=== PATIENT | female | born 1965 | race Caucasian/White ===

== ENCOUNTER 2017-09-18 11:33 | Emergency (ER) | payer SELFPAY ==
[~2017-09-18] VITALS: Ht 165.1 cm; Wt 80.0 kg
[~2017-09-18 11:33] MED LIST: LEVA750T PO; METR-1 PO; OXYC1SOL5 PO; RANI150 PO
[2017-09-18 11:35] VITALS: BP 168/95; PULSE 80; RESP 18; TEMP 97.9; O2SAT 97
[2017-09-18] MEDS ORDERED: PANTOPRAZOLE SODIUM 40 MG VIAL IV PUSH ONE (12:00)
[2017-09-18] MEDS ORDERED: SODIUM CHLORIDE 0.9% FLUSH 10 ML FLUSH IVF PRN (12:00)
[2017-09-18 12:04] VITALS: RESP 18; O2SAT 98
--- NOTE | 2017-09-18 12:04 | PD ---
HPI Chief Complaint: GI Complaint Time Seen by Provider: 11:45 Travel History International Travel<30 days: No Contact w/Intl Traveler<30days: No Traveled to known affect area: No History of Present Illness HPI 51 y/o female presents with rectal bleeding for the past 4 days. She notes she is also having left lower quadrant abdominal pain. She states she has history of diverticular disease and has had to have surgery for this before. She states she had been doing good until the past 4 days. She denies any vomiting or other concurrent complaints. Quality is bright red. Severity is every time she goes to the bathroom. She states she wants an antibiotic and to go home with possible because she has to work at 4 PM. She denies specific modifying factors. 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") Tubal Ligation: Yes Past Surgical History Abdominal Surgery: Yes (LEFT OVARY REMOVED) Appendectomy: No Cardiac Surgery: No Cholecystectomy: No Coronary Artery Bypass Graft: No Ear Surgery: No Endocrine Surgery: No Eye Surgery: No Genitourinary Surgery: No Gynecologic Surgery: Yes (TUBAL LIGATION AND OOPHORECTOMY) Hysterectomy: Yes Joint Replacement: No Neurologic Surgery: No Oral Surgery: No Thoracic Surgery: No Tonsillectomy: Yes Other Surgery: Yes Social History Alcohol Use: No Tobacco Use: Yes (1 PACK PER DAY) Substance Use: No Allergies-Medications (Allergen,Severity, Reaction): Coded Allergies: acetaminophen (Unverified Allergy, Intermediate, HIVES, 06/10/17) hydrocodone (Unverified Allergy, Intermediate, HIVES, 06/10/17) Reported Meds & Prescriptions Reported Meds & Active Scripts Active Review of Systems Except as stated in HPI: all other systems reviewed are Neg Physical Exam Narrative GENERAL: Well-nourished, well-developed patient. SKIN: Warm and dry. HEAD: Normocephalic and atraumatic. EYES: No injection or drainage. ENT: No nasal drainage noted. NECK: Supple, trachea midline. CARDIOVASCULAR: Regular rate and rhythm RESPIRATORY: Breath sounds equal bilaterally. No accessory muscle use. GASTROINTESTINAL: Abdomen soft, ttp in llq, nondistended. RECTAL EXAM: Performed with de alcoholizer and after permission. Stool is brown with bright red blood NEUROLOGICAL: Awake and alert. Moves all extremities and sensory grossly within normal limits. Normal speech. Data Data Last Documented VS Vital Signs Date Time Temp Pulse Resp B/P (MAP) Pulse Ox O2 Delivery O2 Flow Rate FiO2 09/18/17 12:15 97.7 79 18 145/97 (113) 97 Room Air Orders Orders Basic Metabolic Panel (Bmp) (09/18/17 11:46) Complete Blood Count With Diff (09/18/17 11:46) Prothrombin Time / Inr (Pt) (09/18/17 11:46) Act Partial Throm Time (Ptt) (09/18/17 11:46) Type And Screen (09/18/17 11:46) Ecg Monitoring (09/18/17 11:46) Iv Access Insert/Monitor (09/18/17 11:46) Oximetry (09/18/17 11:46) Sodium Chloride 0.9% Flush (Ns Flush) (09/18/17 12:00) Ct Abd/Pel W Iv Contrast(Rout) (09/18/17 ) Pantoprazole Inj (Protonix Inj) (09/18/17 12:00) Iohexol 350 Inj (Omnipaque 350 Inj) (09/18/17 13:02) Ed Discharge Order (09/18/17 14:10) Labs Laboratory Tests Test 09/18/17 11:54 White Blood Count 9.9 TH/MM3 Red Blood Count 5.27 MIL/MM3 Hemoglobin 15.5 GM/DL Hematocrit 46.4 % Mean Corpuscular Volume 88.0 FL Mean Corpuscular Hemoglobin 29.4 PG Mean Corpuscular Hemoglobin Concent 33.4 % Red Cell Distribution Width 14.0 % Platelet Count 198 TH/MM3 Mean Platelet Volume 9.1 FL Neutrophils (%) (Auto) 65.5 % Lymphocytes (%) (Auto) 25.6 % Monocytes (%) (Auto) 6.7 % Eosinophils (%) (Auto) 0.8 % Basophils (%) (Auto) 1.4 % Neutrophils # (Auto) 6.5 TH/MM3 Lymphocytes # (Auto) 2.5 TH/MM3 Monocytes # (Auto) 0.7 TH/MM3 Eosinophils # (Auto) 0.1 TH/MM3 Basophils # (Auto) 0.1 TH/MM3 CBC Comment DIFF FINAL Differential Comment Prothrombin Time 9.9 SEC Prothromb Time International Ratio 0.9 RATIO Activated Partial Thromboplast Time 31.2 SEC Blood Urea Nitrogen 10 MG/DL Creatinine 0.79 MG/DL Random Glucose 97 MG/DL Calcium Level 8.9 MG/DL Sodium Level 137 MEQ/L Potassium Level 4.6 MEQ/L Chloride Level 107 MEQ/L Carbon Dioxide Level 23.4 MEQ/L Anion Gap 7 MEQ/L Estimat Glomerular Filtration Rate 76 ML/MIN MDM Medical Decision Making Medical Screen Exam Complete: Yes Emergency Medical Condition: Yes Medical Record Reviewed: Yes (pmh confirmed) Interpretation(s) CBC & BMP Diagram 09/18/17 11:54 Calcium Level 8.9 Last 24 hours Impressions Abdomen/Pelvis CT 09/18/17 0000 Signed Impressions: Service Date/Time: August 12:50 - CONCLUSION: Prior surgery at the rectosigmoid region with intact fat about the colon and no evidence of free fluid. Buck Young MD Differential Diagnosis Hemorrhoid, diverticulosis, anemia, diverticulitis Narrative Course Will check blood work, CT scan and dose with Protonix and monitor ed workup no emergent process, offered observation, wanting to go, Patient denies any new complaints and states that they are feeling better. Patient happy with care, all questions answered. Patient knows that follow up is incumbent on them and to return to the emergency room immediately if new or worsening symptoms develop. Patient given strict return precautions, vitals reviewed and are normal, agrees to further workup as an outpatient. hgb normal Diagnosis Primary Impression: Rectal bleeding Additional Impression: Abdominal pain Qualified Codes: R10.32 - Left lower quadrant pain Patient Instructions: General Instructions Additional Instructions: return as needed, follow with primary and GI this week, tylenol as needed Med/Other Pt SpecificInfo: No Change to Meds Disposition: 01 DISCHARGE HOME Condition: Stable Mary Guerrero MD Sep 18, 2017 12:03
[2017-09-18 12:09] LABS: AUTOMATED NEUTROPHIL # 6.5 TH/MM3 (1.8-7.7); BASOPHIL # 0.1 TH/MM3 (0-0.2); BASOPHIL % 1.4 % (0.0-2.0); EOSINOPHIL # 0.1 TH/MM3 (0-0.4); EOSINOPHIL % 0.8 % (0.0-4.0); HEMATOCRIT 46.4 % (35.0-46.0); HEMO FLAGS DIFF FINAL; LYMPH % 25.6 % (9.0-44.0); LYMPHOCYTE # 2.5 TH/MM3 (1.0-4.8); MEAN CORPUSCULAR HEMOGLOBIN 29.4 PG (27.0-34.0); MEAN CORPUSCULAR HGB CONC 33.4 % (32.0-36.0); MONO % 6.7 % (0.0-8.0); NEUT % 65.5 % (16.0-70.0); PLATELET COUNT 198 TH/MM3 (150-450); RED BLOOD COUNT 5.27 MIL/MM3 (4.00-5.30); WHITE BLOOD COUNT 9.9 TH/MM3 (4.0-11.0)
[2017-09-18 12:15] VITALS: BP 145/97; PULSE 79; RESP 18; TEMP 97.7; O2SAT 97
[2017-09-18 12:18] LABS: PROTHROMBIN TIME - PATIENT 9.9 SEC (9.8-11.6)
[2017-09-18 12:21] LABS: APTT (PATIENT) 31.2 SEC (24.3-30.1); INTERNATIONAL NORMALIZED RATIO 0.9 RATIO
[2017-09-18 12:39] LABS: BICARBONATE 23.4 MEQ/L (21.0-32.0); POTASSIUM 4.6 MEQ/L (3.5-5.1)
[2017-09-18] MEDS ORDERED: IOHEXOL 350 MG/ML 10 ML VIAL (for RAD DIAG) IVCONTRAST ONE (13:02)
--- NOTE | 2017-09-18 13:37 | RADRPT ---
EXAM DATE/TIME: 09/18/2017 12:50 [facility] COMPARISON: CT ABDOMEN & PELVIS W CONTRAST, February 05, 2016, 14:55. INDICATIONS : Abdominal pain and rectal bleeding for 4 days IV CONTRAST: 95 cc Omnipaque 350 (iohexol) IV ORAL CONTRAST: No oral contrast ingested. RADIATION DOSE: 6.89 CTDIvol (mGy) MEDICAL HISTORY : Gastroesophageal reflux disease. Cardiovascular disease SURGICAL HISTORY : Hysterectomy. ENCOUNTER: Initial ACUITY: 4 - 6 days PAIN SCALE: 5/10 LOCATION: lower quadrant TECHNIQUE: Volumetric scanning of the abdomen and pelvis was performed. Using automated exposure control and ad justment of the mA and/or kV according to patient size, radiation dose was kept as low as reasonably achievable to obtain optimal diagnostic quality images. DICOM format image data is available electro nically for review and comparison. FINDINGS: LOWER LUNGS: The visualized lower lungs are clear. LIVER: Scattered subcentimeter low density lesions in the left and right lobe of the liver are similar appea darrel to prior CT in January 2016.. No new findings. No biliary ductal dilatation. No calcified gall stones. SPLEEN: Normal size without lesion. PANCREAS: Within normal limits. KIDNEYS: Normal in size and shape. There is no mass, stone or hydronephrosis. ADRENAL GLANDS: Within normal limits. VASCULAR: There is no aortic aneurysm. BOWEL/MESENTERY: No dilated loops of small or large bowel. Anastomosis suture at the rectosigmoid junction with intac t pericolonic fat.. No evidence of free fluid. ABDOMINAL WALL: Within normal limits. RETROPERITONEUM: There is no lymphadenopathy. BLADDER: No wall thickening or mass. REPRODUCTIVE: Anteverted uterus. Adnexal regions are unremarkable. INGUINAL: There is no lymphadenopathy or hernia. MUSCULOSKELETAL: Within normal limits for patient age. CONCLUSION: Prior surgery at the rectosigmoid region with intact fat about the colon and no evidence of free flui d. Buck Young MD on September 18, 2017 at 13:32 Board Certified Radiologist. This report was verified electronically.
== END 2017-09-18 14:27 | disposition home or self-care (01) ==
LOC: NEPC 11:33
DX: K62.5 Hemorrhage of anus and rectum (principal); R10.32 Left lower quadrant pain; F41.9 Anxiety disorder, unspecified; E78.00 Pure hypercholesterolemia, unspecified; K21.9 Gastro-esophageal reflux disease without esophagitis; F17.200 Nicotine dependence, unspecified, uncomplicated; Z87.19 Personal history of other diseases of the digestive system; Z88.6 Allergy status to analgesic agent; Z88.5 Allergy status to narcotic agent
CPT/HCPCS: 74177; 80048; 85025; 85610; 85730; 86850; 86900; 86901; 96374; 99285; C9113; Q9967